=== PATIENT | male | born 1950 | race Two or more races ===

== ENCOUNTER 2024-12-28 06:59 | Inpatient (IN) | payer MEDICARE, MEDICAID, SELFPAY ==
[2024-12-28] VITALS (10 sets, daily range): BP systolic 115–162; BP diastolic 65–93; PULSE 74–97; RESP 16–18; TEMP 36.6–39.4; O2SAT 94–96; BMI 26.7; BMI 21.8
--- NOTE | 2024-12-28 | XR_ITS ---
MRI abdomen, without contrast. MRCP Date and time of exam: December 28, 2024, 1501 hours INDICATIONS: Elevated liver function tests today, gallstones, thickened gallbladder wall on CT abdomen study today Technique: Multiple axial and coronal images of the abdomen have been obtained with the Siemens 1.5T MRI scanner. Images obtained included T1 weighted transverse images, T2-weighted transverse images, T2-weighted transverse images fat-suppressed, T2 weighted haste fat suppressed transverse images, T1 weighted images, in and out of phase images, T2-weighted coronal images, breath hold, T2 weighted haze coronal images as well as T2 weighted coronal thick slab images, MRCP. Findings: No focal liver lesions Multiple gallstones Edema and inflammation around the gallbladder The common hepatic common bile ducts are not enlarged No pancreatic mass or peripancreatic edema Spleen is not enlarged Severe left renal cortical thinning with staghorn calculi Moderate right hydronephrosis, 20 mm calculus in the right renal pelvis Right perinephric stranding IMPRESSION: Acute calculus cholecystitis Negative for common hepatic or common bile duct stone
--- NOTE | 2024-12-28 07:17 | EDNOTE_ITS ---
ED Abdominal Pain RME/HPI General Chief Complaint: Abdominal Pain Stated complaint: ABD PAIN Time seen by provider: 12/28/24 07:09 Arrival date/time: 12/28/24 06:59 Source: patient Mode of arrival: EMS Limitations: no limitations RME / HPI RME / HPI narrative: Patient is a 74-year-old male resident of [facility] with onset of abdominal pain at this a.m. on the left side of his abdomen which lasted approximately 1 hour but then resolved. Patient patient does not have any abdominal pain at this time. No complaint of nausea, vomiting, constipation. MD complaint: abdominal pain Onset (ago): hour(s) Consistency: now resolved Severity: mild Quality: aching Radiation: LLQ Exacerbating factors: nothing Associated symptoms: denies other symptoms Related Data Home Medications ?Medication ?Instructions ?Recorded ?Confirmed acetaminophen 325 mg tablet 650 mg PO Q6H PRN Pain 09/24/22 (Tylenol) bisacodyl 10 mg rectal suppository 10 mg DC Q72H PRN C onstipation 03/31/20 09/24/22 (Dulcolax (bisacodyl)) magnesium hydroxide 400 mg/5 mL 30 ml PO Q48H PRN Cons tipation 03/31/20 09/24/22 oral suspension (Milk of Magnesia) sodium phosphates 19 gram-7 118 ml DC Q72H PRN Constip ation 03/31/20 09/24/22 gram/118 mL enema (Fleet Enema) Previous Rx's ?Medication ?Instructions ?Recorded levetiracetam 1,000 mg tablet 1,000 mg PO BID 90 days #180 tabs 09/24/22 (Keppra) Allergies Allergy/AdvReac Type Severity Reaction Status Date / Time No Known Allergies Allergy Verified 06/20/18 16:08 Review of Systems Review of Systems Systems Reviewed: All systems reviewed, normal except as documented Past Medical History Past Medical History NEUROLOGIC: Positive Neurological Disorders, Cerebrovascular Accident and Seizures CARDIAC: Negative Cardiac Disorders or Congestive Heart Failure RESPIRATORY: Negative Chronic Obstructive Pulmonary Disease (COPD) or Emphysema GASTROINTESTINAL: Negative Gastrointestinal Disorders GENITOURINARY: Negative Genitourinary Disorders or Renal Disease REPRODUCTIVE: Negative Breast Cancer MUSCULOSKELETAL: Negative Musculoskeletal Disorders ENDOCRINE: Negative Endocrine Disorders, Diabetes Mellitus Type 1 or Diabetes Mellitus Type 2 HEMATOLOGIC: Negative Blood Disorders OTHER HISTORY: Negative Autoimmune Disease, Anesthesia Reactions, Organ Transplant, MRSA, Clostridium Difficile or Breast Cancer Surgical History SURGICAL: Negative Cardiac Surgery, Endocrine Surgery, Thyroidectomy, Ear Surgery, Abdominal Surgery, Nephrectomy, Joint Replacement, Neurologic Surgery, Brain Shunt, Vasectomy or Organ Transplant Social History SMOKING STATUS: Never smoker SUBSTANCE USE: does not use ED Exam General Limitations: Present no limitations General appearance: Present alert and in no apparent distress Head Head exam: Present atraumatic Eye Eye exam: Present normal appearance, PERRL and EOMI ENT ENT exam: Present normal exam, normal oropharynx and mucous membranes moist Neck Neck exam: Present normal inspection, full ROM and trachea midline Chest Chest inspection: Present normal inspection and symmetric chest wall rise Respiratory Respiratory exam: Present normal lung sounds bilaterally Cardiovascular Cardiovascular exam: Present regular rate, normal rhythm and normal heart sounds Abdominal Exam Abdominal exam: Present tenderness (Mild RUQ TTP, firm on palpation, no massess) and normal bowel sounds; Absent distention, guarding, rebound or rigidity Extremities Exam Extremities exam: Present normal inspection and full ROM Back Exam Back exam: Present normal inspection and full ROM Neurological Exam Neurological exam: Present alert, oriented X3 and CN II-XII intact Psychiatric Psychiatric exam: Present normal affect and normal mood Skin Skin exam: Present warm, dry, intact and normal color Course Quality Measures none Orders Category Date Time Status COVID-19 Screening Questionnaire NOW Care 12/28/24 13:22 Active Systems Mechanic STAT Care 12/28/24 07:16 Active Continuous Pulse Oximetry STAT Care 12/28/24 07:16 Completed Decision to Admit X1 Care 12/28/24 13:21 Completed Insert IV STAT Care 12/28/24 07:16 Active MRI Screening NOW Care 12/28/24 14:09 Active NPO STAT Care 12/28/24 07:16 Active Consult to General Surgery Stat Cons 12/28/24 13:[address] abdomen pelvis wo con Stat Exams 12/28/24 07:16 Completed MR MRCP Stat Exams 12/28/24 Completed US gall bladder Stat Exams 12/28/24 10:02 Completed Amylase Stat Lab 12/28/24 07:58 Completed Blood Culture (Lab) Stat Lab 12/28/24 14:05 Received CBC Stat Lab 12/28/24 07:58 Completed Comprehensive Metabolic Panel Stat Lab 12/28/24 07:58 Completed Lactate (Lactic Acid) Stat Lab 12/28/24 13:53 Completed Prothrombin Time with INR Stat Lab 12/28/24 07:58 Completed Urinalysis Stat Lab 12/28/24 10:16 Completed Morphine* Inj Med 12/28/24 10:03 Discontinued 4 mg IVP X1 ONE Morphine* Inj Med 12/28/24 13:09 Discontinued 4 mg IVP X1 ONE Ondansetron Inj [Zofran Inj] Med 12/28/24 10:03 Discontinued 4 mg IVP X1 ONE Ondansetron Inj [Zofran Inj] Med 12/28/24 13:09 Discontinued 4 mg IVP X1 ONE Piper/Tazo 3.375 gm Premix [Zosyn] Med 12/28/24 13:23 Discontinued 3.375 gm in 50 ml IV X1 Sodium Chloride 0.9% 1000 ml [Ns] 1,000 ml Med 12/28/24 07:16 Discontinued IV 999 mls/hr Vital Signs Vital signs: Vital Signs Temperature 97.8 F 12/28/24 07:11 Pulse Rate 85 12/28/24 07:11 Respiratory Rate 18 12/28/24 07:11 Blood Pressure 162/93 H 12/28/24 07:11 Pulse Oximetry (%) 95 12/28/24 07:11 Oxygen Delivery Method Room Air 12/28/24 07:11 Pulse ox is 95% on room air which is adequate. Abdominal Pain MDM MDM Narrative MDM Narrative:: Talia Pastrana am scribing for and in the presence of Dr. Sanchez. Patient data External records reviewed:: [facility] [place] previous records (I reviewed admission from 09/23/2022 through 09/24/2022 ) and EMS form Clinical information provided by:: patient and EMS Social determinants that could affect healthcare access:: none Patient has the following chronic illnesses:: seizure and CVA in 2020 How is presenting disease/condition affected by chronic disease/condition?: exacerbated by Evaluation data The following diagnostics were reviewed and interpreted by me:: lab results and radiology exam(s) Lab and/or radiology exams considered but not ordered:: None Interpretation Summary: Ordering Physician: Vern Sanchez MD Date of Service: 12/28/24 Procedure(s): CT abdomen pelvis wo con Accession Number(s): [id number] cc: Vern Sanchez MD; Nico Dillon MD; Yosvany Kirk MD~ Examination: CT abdomen and pelvis without contrast. Coronal 3-D reconstructions. Sagittal 2-D reconstructions. Date and time of exam: December 28, 2024, 0729 hours INDICATIONS: Abdominal pain back pain beginning last night CTDI: vol (mGy): 6.04 DLP: (mGycm): 337 Technique: Axial images of the abdomen have been obtained, 3 mm slice thickness Intravenous contrast material has not been administered. Low dose protocols were performed. One or more of the following dose reduction techniques were used; automated exposure control, adjustment of the mA and/or KV according to patient size, use of iterative reconstruction technique. Findings: Large retrocardiac gastric hernia Liver is irregular in contour Distended gallbladder with gallstones Spleen is not enlarged. No pancreatic mass. Severe left renal cortical thinning, extensive left staghorn calculi 20 mm calculus in the right renal pelvis with moderate right hydronephrosis Aorta normal size Normal seminal vesicles Urinary bladder does not demonstrate calculi No pericecal inflammatory change Severe osteopenia IMPRESSION: Recommend hepatobiliary sonography to assess distended gallbladder with gallstones Severe left renal cortical thinning, extensive left staghorn calculi 20 mm calculus in the right renal pelvis with moderate right hydronephrosis Dictated By: Yosvany Kirk MD Signed By: <Electronically signed by Yosvany Kirk MD in OV> 12/28/24 0937 Ordering Physician: Vern Sanchez MD Date of Service: 12/28/24 Procedure(s): US gall bladder Accession Number(s): [id number] cc: Vern Sanchez MD; Nico Dillon MD; Yosvany Kirk MD~ Examination: Abdomen sonogram, Limited Date and time of exam: December 28, 2024, 1036 hours INDICATIONS: Elevated liver function tests on laboratory examination today Technique: Real-time short scale transabdominal sonographic images of the upper abdomen obtained. Findings: Gallstones, gallbladder wall abnormally thickened 0.5 cm Common bile duct 0.6 cm Pancreatic head 2.8 cm Liver 16.2 cm fatty infiltration irregular contour Normal hepatopedal portal venous flow Patent IVC Mild right hydronephrosis IMPRESSION: Cholelithiasis Abnormally thickened gallbladder wall Consider MRCP follow-up to confirm cholecystitis Dictated By: Yosvany Kirk MD Signed By: <Electronically signed by Yosvany Kirk MD in OV> 12/28/24 1135 Ordering Physician: Vern Sanchez MD Date of Service: 12/28/24 Procedure(s): MR MRCP Accession Number(s): [id number] cc: Vern Sanchez MD; Nico Dillon MD; Yosvany Kirk MD~ MRI abdomen, without contrast. MRCP Date and time of exam: December 28, 2024, 1501 hours INDICATIONS: Elevated liver function tests today, gallstones, thickened gallbladder wall on CT abdomen study today Technique: Multiple axial and coronal images of the abdomen have been obtained with the Siemens 1.5T MRI scanner. Images obtained included T1 weighted transverse images, T2-weighted transverse images, T2-weighted transverse images fat-suppressed, T2 weighted haste fat suppressed transverse images, T1 weighted images, in and out of phase images, T2-weighted coronal images, breath hold, T2 weighted haze coronal images as well as T2 weighted coronal thick slab images, MRCP. Findings: No focal liver lesions Multiple gallstones Edema and inflammation around the gallbladder The common hepatic common bile ducts are not enlarged No pancreatic mass or peripancreatic edema Spleen is not enlarged Severe left renal cortical thinning with staghorn calculi Moderate right hydronephrosis, 20 mm calculus in the right renal pelvis Right perinephric stranding IMPRESSION: Acute calculus cholecystitis Negative for common hepatic or common bile duct stone Dictated By: Yosvany Kirk MD Signed By: <Electronically signed by Yosvany Kirk MD in OV> 12/28/24 1532 Medications / Prescriptions Medications or Prescriptions considered but not ordered:: None Medication administrations:: Medication Administration History Acetaminophen (Acetaminophen 325 Mg Tablet) 650 mg PO Q6H PRN PRN Reason: PAIN OR FEVER > 100.4 Stop: 01/27/25 16:24 Hydrocodone Bitart/Acetaminophen (Hydrocodone/Apap 5/325 Tablet) 1 tab PO Q4HR PRN PRN Reason: PAIN SCALE 4-6 (Moderate Stop: 01/02/25 16:24 Heparin Sodium (Porcine) (Heparin Sod Inj 5000 Unit/Ml Vial) 5,000 unit SC Q8HR SANTOS Stop: 01/11/25 21:59 Lactated Ringer's (Lactated Ringers) 1,000 mls @ 75 mls/hr IV .[id number] SANTOS Stop: 01/27/25 16:59 Ciprofloxacin/Dextrose (Cipro Ivpb) 400 mg in 200 mls @ 200 mls/hr IV Q12HR SANTOS Stop: 01/04/25 16:55 Metronidazole (Flagyl 500 Mg Iv) 500 mg in 100 mls @ 200 mls/hr IV Q8HR SANTOS Stop: 01/04/25 16:55 Morphine Sulfate (Morphine Sulf Inj 4 Mg/Ml Vial) 1 mg IVP Q4HR PRN PRN Reason: PAIN SCALE 7-10 (Severe Stop: 01/02/25 16:24 Ondansetron HCl (Ondansetron Inj 2 Mg/Ml Inj 2 Ml) 4 mg IVP Q6H PRN; Protocol PRN Reason: NAUSEA OR VOMITING Stop: 01/27/25 16:24 Pantoprazole Sodium (Pantoprazole Inj 40 Mg Vial) 40 mg IVP QDAY SANTOS Stop: 01/28/25 08:59 Discontinued Medications Acetaminophen (Acetaminophen 325 Mg Tablet) 650 mg PO Q6H PRN PRN Reason: PAIN SCALE 1-3 (mild Stop: 01/27/25 16:24 Heparin Sodium (Porcine) (Heparin Sod Inj 5000 Unit/Ml Vial) 5,000 unit SC Q12HR SANTOS Stop: 01/11/25 16:29 Last Admin: 12/28/24 16:50 Dose: Not Given Documented By: BENNETT Non-Admin Reason: Patient Refused Sodium Chloride (Ns) 1,000 mls @ 999 mls/hr IV .Q1H1M ONE Stop: 12/28/24 08:16 Last Infusion: 12/28/24 08:56 Dose: Infused Documented By: Admin: 12/28/24 07:55 Dose: 999 mls/hr Documented By: BENNETT Piperacillin/Tazobactam/Dextrose (Zosyn) 3.375 gm in 50 mls @ 100 mls/hr IV X1 ONE; Protocol Stop: 12/28/24 13:52 Last Admin: 12/28/24 13:38 Dose: 100 mls/hr Documented By: BENNETT Morphine Sulfate (Morphine Sulf Inj 4 Mg/Ml Vial) 4 mg IVP X1 ONE Stop: 12/28/24 10:04 Last Admin: 12/28/24 10:14 Dose: 4 mg Documented By: AASHISH Morphine Sulfate (Morphine Sulf Inj 4 Mg/Ml Vial) 4 mg IVP X1 ONE Stop: 12/28/24 13:10 Last Admin: 12/28/24 13:32 Dose: 4 mg Documented By: BENNETT Morphine Sulfate (Morphine Sulf Inj 4 Mg/Ml Vial) 2 mg IVP Q4HR PRN PRN Reason: PAIN SCALE 7-10 (Severe Stop: 01/02/25 16:24 Ondansetron HCl (Ondansetron Inj 2 Mg/Ml Inj 2 Ml) 4 mg IVP X1 ONE; Protocol Stop: 12/28/24 10:04 Last Admin: 12/28/24 10:14 Dose: 4 mg Documented By: AASHISH Ondansetron HCl (Ondansetron Inj 2 Mg/Ml Inj 2 Ml) 4 mg IVP X1 ONE; Protocol Stop: 12/28/24 13:10 Last Admin: 12/28/24 13:31 Dose: 4 mg Documented By: BENNETT See above Consultations Consultation(s) initiated? (list below): Yes Consultation #1 (Physician, Specialty, Details): I spoke with surgeon Dr. Montenegro. Discussed patients PMHx, HPI, ED course, exam findings, labs, and radiology results. He agrees to consult and requests we admit to hospitalist team. Time: 13:15 Consultation #2 (Physician, Specialty, Details): I spoke with resident Dr. Lopez working with Dr. Palmer. Discussed patients PMHx, HPI, ED course, exam findings, labs, and radiology results. State they will consult with Dr. Montenegro and evaluate the patient prior to admission. Time: 13:25 Consultation #3 (Physician, Specialty, Details): 1330: Again, I spoke with surgeon Dr. Montenegro. 1405: Residents report they spoke with surgeon Dr. Montenegro who is requesting an MRCP prior to admission. 1610: Patient has been admitted by hospitalist team. Diagnosis Differential diagnosis abdominal pain: abdominal pain, calculus of kidney, constipation, diverticulitis and other (cholelithiasis, cholecystitis ) Most likely diagnosis given after review of the tests above:: Cholecystitis Cholelithiasis Elevated liver function test Hydronephrosis, right Left staghorn calculus Pyuria Admission Indicated Admission indicated?: indicated Admission Request Was there a request for admission?: Yes Admission Attestation Admission request attestation: Discussed case with [] from Hospitalist service regarding admission. Discussed patients ED course, exam findings, labs, and radiology results. The Hospitalist [agrees,declines] to accept the patient for admission. Disposition Plan Disposition Plan: Admit Discharge Plan Plan Patient Disposition: Admit Acute Care w/in Hospital Problem List Clinical Impression: Cholecystitis, Cholelithiasis, Elevated liver function tests, Hydronephrosis, right, Staghorn calculus, Pyuria
[2024-12-28] MEDS: SODIUM CHLORIDE 0.9% 1000 ML 1,000 ML 999 ML IV (07:55)
[2024-12-28 08:14] LABS: Basophils # (Auto) 0.0 Thou/mm3 (0.0-0.2); Basophils % (Auto) 0 % (0-2.5); Eosinophils # (Auto) 0.0 Thou/mm3 (0.0-0.5); Eosinophils % (Auto) 0 % (0-10); Hematocrit 52.1 % (41.0-53.0); Hemoglobin 17.4 g/dL (13.5-16.0); Immature Granulocytes Auto 0.02 Thou/mm3 (0.00-0.00); Lymphocytes # (Auto) 1.2 Thou/mm3 (1.0-4.8); Lymphocytes % (Auto) 13 % (10-50); Mean Corpuscular HGB Conc 33.4 g/dl (31.0-37.0); Mean Corpuscular Hemoglobin 30.4 pg (25.0-35.0); Mean Corpuscular Volume 91 fL (80-100); Monocytes # (Auto) 0.5 Thou/mm3 (0.0-0.8); Monocytes % (Auto) 6 % (0-12); Neutrophils # (Auto) 7.8 Thou/mm3 (1.8-7.7); Neutrophils % (Auto) 81 % (37-80); Nucleated Red Blood Cell # 0.00 Thou/mm3 (0.00-0.00); Nucleated Red Blood Cell % 0 /100 WBC (0); Platelet Count 147 Thou/mm3 (140-440); RDW Standard Deviation 44.5 fL (35.1-43.9); Red Blood Count 5.72 Miln/mm3 (4.50-5.90); White Blood Count 9.6 Thou/mm3 (3.8-10.6)
[2024-12-28 08:27] LABS: Alanine Aminotransferase 336 U/L (10-49); Albumin, Serum 4.5 gm/dL (3.4-4.8); Albumin/Globulin Ratio 1.4 (1.2-2.2); Alkaline Phosphatase 270 U/L (46-116); Amylase 112 U/L (30-118); Anion Gap 12 (7-16); Aspartate Amino Transferase 482 U/L (0-34); BUN/Creatinine Ratio 13 Ratio (12-20); Bilirubin,Total 1.7 mg/dL (0.3-1.2); Blood Urea Nitrogen 13 mg/dL (9-23); Calcium 9.3 mg/dL (8.3-10.6); Calcium (Corrected) 9.3 mg/dL (8.5-10.1); Carbon Dioxide 21.0 mMol/L (20.0-31.0); Chloride 109 mMol/L (98-107); Creatinine (Component) 1.0 mg/dL (0.6-1.3); Estimated Creatinine Clearance 55.9 mL/min (>60); Globulin 3.2 gm/dL (2.3-3.5); Glucose 140 mg/dL (74-106); Osmolality,Calculated 285 (275-295); Potassium 4.1 mMol/L (3.4-5.1); Sodium 142 mMol/L (136-145); Total Protein 7.7 gm/dL (5.7-8.2); eGFR > 60 See Note
[2024-12-28 09:20] LABS: INR 1.1 (0.9-1.3); Prothrombin Time 11.5 Seconds (9.0-12.2)
--- NOTE | 2024-12-28 10:02 | XR_ITS ---
Examination: Abdomen sonogram, Limited Date and time of exam: December 28, 2024, 1036 hours INDICATIONS: Elevated liver function tests on laboratory examination today Technique: Real-time short scale transabdominal sonographic images of the upper abdomen obtained. Findings: Gallstones, gallbladder wall abnormally thickened 0.5 cm Common bile duct 0.6 cm Pancreatic head 2.8 cm Liver 16.2 cm fatty infiltration irregular contour Normal hepatopedal portal venous flow Patent IVC Mild right hydronephrosis IMPRESSION: Cholelithiasis Abnormally thickened gallbladder wall Consider MRCP follow-up to confirm cholecystitis
[2024-12-28] MEDS: ONDANSETRON INJ 2 MG/ML INJ 2 ML 4 MG IVP ×2 (10:14→13:31)
[2024-12-28] MEDS: MORPHINE SULF INJ 4 MG/ML VIAL IVP ×2 (10:14→13:32)
[2024-12-28 10:38] LABS: Collection Type, Urine Clean Catch
[2024-12-28 11:02] LABS: Bacteria,Urine Rare; Bilirubin,Urine Negative (Negative); Blood,Urine 2+ (Negative); Clarity,Urine Turbid (Clear/Hazy); Color,Urine Yellow (Lt Yel-Yel); Glucose, Urine Negative (Negative); Ketones,Urine Negative (Negative); Leukocyte Esterase,Urine Positive (Negative); Nitrite,Urine Negative (Negative); PH,Urine 6.5 (5.0-7.0); Protein,Urine 1+ (Neg - Trace); RBC,Urine 199 /hpf (0-3); Specific Gravity,Urine 1.021 (1.001-1.035); Squamous Epithelial Cell,Urine 1 /hpf (0-5); Urobilinogen,Urine 4.0 mg/dL (0.0-1.0); WBC,Urine 132 /hpf (0-5)
[2024-12-28] MEDS: PIPER/TAZO 3.375 GM PREMIX 3.375 GM/50 ML BAG IV (13:38)
[2024-12-28 14:02] LABS: Lactate (Lactic Acid) 2.0 mMol/L (0.4-2.0)
--- NOTE | 2024-12-28 14:44 | PC.SS ---
[employer] (JOEY) Dagmar, along with KRISTAN Jaffe, reviewed the chart following a consult for an initial assessment. Patient was BIBA from [facility] with an onset of abdominal pain. Per MD, the patient is not alert and oriented at this time. JOEY called the patient's emergency contacts on the Facesheet; however, the numbers were disconnected, and JOEY called [facility]. Kenya from [facility] provided an updated phone number for the patient's son, Vega Robbins, . JOEY had admitting update the phone number on the Facesheet. JOEY spoke to Vega, who reports the patient is a long-term resident at [facility] and confirmed that after medical clearance patient is to return to the facility. JOEY confirms with [place] that the patient is a long-term resident and ok to return. Per Vega, the patient's baseline is independent with no DME and alert and oriented. Patient's PCP is MD Dillon. Surrogate medical decision maker: Vega Robbins, Discharge plan: Back to [facility]
--- NOTE | 2024-12-28 15:54 | ESHP_ITS ---
<Statement entered by Ted Lopez MD - 12/29/24 01:35> Chase Robbins is a 74-year-old male with a past medical history of CVA in 2019 and seizure disorder who presents from SNF for acute onset abdominal pain and admitted for management of acute calculous cholecystitis. Afebrile and other vital signs stable. CBC without leukocytosis. CHEM panel significant for elevated LFTs and T. bili. Initial imaging showed cholelithiasis but given elevated LFTs and T. bili, MRCP requested that showed acute calculous cholecystitis. Started on ciprofloxacin and Flagyl, restarted home Keppra, and general surgery consulted. Patient will be n.p.o. in anticipation for cholecystectomy. ----- Note reviewed and agree with care plan as documented. Please refer to the note below for further details. Plan discussed with attending physician Dr. Spencer Lopez MD PGY-2 Internal Medicine Documentation for date of: 12/28/24 HPI History of Present Illness History of present illness: HPI: Past 74-year-old male with medical history of CVA in 2019, seizure disorder, came to the ED on 12/28 complaining of left-sided abdominal pain earlier in the morning which lasted approximately 1 hour before it receded. Patient has had right upper quadrant abdominal pain on and off for the past 2 weeks. Pain was described as stabbing worse with movement. Patient had vomited once in the morning. Eating more than a small portion would exacerbate the abdominal pain. Patient has been taking pain meds with no avail. In the ED, patient denied presence of abdominal pain, nausea, vomiting, or history of constipation. ED Course: At arrival, VSS BP 162/93, HR 85, RR 18, T97.8, O2 95% on RA. Labs showed WBC 9.6, Hgb 17.4, glucose 140, T. bili 1.7, LFTs elevated AST 482, ALT 336, ALP 270. Patient was given a 1 L bolus of NS, morphine IVP 4 mg x 2 for pain, Zofran IVP 4 mg x 2 and Zosyn 3.375 g x1. Meds: See Medication List. Allergy: None PMHx: See HPI above. PSHx: None Fam Hx: Non-contributory Soc Hx: Denies smoking or using tobacco products. Denies drinking alcohol. Denies using marijuana, or illicit drugs. Exam Vital Signs Temp Pulse Resp BP Pulse Ox O2 Del Method 98.8 F 96 18 126/65 95 Room Air 12/28/24 14:51 12/28/24 14:51 12/28/24 14:51 12/28/24 14:51 12/28/24 14:51 12/28/24 14:51 Narrative Exam General: Alert and oriented x3, No apparent distress. Skin: Intact, Warm, no rashes. HEENT: Normocephalic, Atraumatic. Normal neck range of motion, Supple. Trachea midline. Respiratory: Lungs are clear to auscultation, Breath sounds are equal bilaterally with equal chest expansion. Cardiovascular: RRR, normal S1, S2, No murmurs. Distal pulses 2+ Abdomen: Abdomen firm, rigid, non-distended, without erythema, or lesions. Diminished bowel sounds x4. Percussion tympanic. TTP RUQ, No organomagely. No guarding or rebound present. Musculoskeletal/Extremities: No erythema, swelling, tenderness of any joints. No edema of BLE. DP pulses +2/3 b/l. Full active ROM of all four extremities. Neurologic: NEURO: Oriented x3, cranial nerves II to XII grossly intact. Muscle strength 5/5 on UE and LE b/l, Moves extremities x4. Sensation intact to gross touch along C6-T1 and L2-S1 dermatomes. No focal neurologic deficits noted Psych: Thoughts linear and responses appropriate. Results: Labs 12/29/24 04:50 12/29/24 04:50 Labs: Short CBC 12/28/24 Range/Units 07:58 WBC 9.6 (3.8-10.6) Thou/mm3 Hgb 17.4 H (13.5-16.0) g/dL Hct 52.1 (41.0-53.0) % Plt Count 147 (140-440) Thou/mm3 BMP 12/28/24 07:58 Sodium 142 Potassium 4.1 Chloride 109 H Carbon Dioxide 21.0 BUN 13 Creatinine 1.0 Glucose 140 H Calcium 9.3 Liver Function 12/28/24 Range/Units 07:58 Total Bilirubin 1.7 H (0.3-1.2) mg/dL AST 482 H (0-34) U/L ALT 336 H (10-49) U/L Alkaline Phosphatase 270 H (46-116) U/L Albumin 4.5 (3.4-4.8) gm/dL Urine 12/28/24 Range/Units 10:16 Urine Color Yellow (Lt Yel-Yel) Urine Clarity Turbid A (Clear/Hazy) Urine pH 6.5 (5.0-7.0) Ur Specific [place] 1.021 (1.001-1.035) Urine Protein 1+ A (Neg - Trace) Urine Glucose (UA) Negative (Negative) Quality Measures Quality Measures none Advance care planning discussed with:: patient Medications Home Medications and Allergies Home Medications ?Medication ?Instructions ?Recorded ?Confirmed ?Type acetaminophen 325 mg tablet 650 mg PO Q6H PRN Pain 12/28/24 History (Tylenol) bisacodyl 10 mg rectal suppository 10 mg [place] Q72H PRN C onstipation 03/31/20 12/28/24 History (Dulcolax (bisacodyl)) magnesium hydroxide 400 mg/5 mL 30 ml PO Q48H PRN Cons tipation 03/31/20 12/28/24 History oral suspension (Milk of Magnesia) sodium phosphates 19 gram-7 118 ml [place] Q72H PRN Constip ation 03/31/20 12/28/24 History gram/118 mL enema (Fleet Enema) brimonidine 0.1 % eye drops 1 drp ophthalmic (eye) TID 12/28/24 12/28/24 History cenobamate 200 mg tablet (Xcopri) 200 mg PO QDAY 12/2812/28/24 History latanoprost 0.005 % eye drops 1 drp ophthalmic (eye) Q PM 12/28/24 12/28/24 History (Xalatan) mirtazapine 15 mg tablet 15 mg PO HS 12/28/24 5 History timolol maleate 0.5 % once daily 1 drp ophthalmic (eye ) QDAY 12/28/24 12/28/24 History eye drops zonisamide 100 mg capsule 600 mg PO QDAY 12/28/2412/17 History Allergies Allergy/AdvReac Type Severity Reaction Status Date / Time No Known Allergies Allergy Verified 06/20/18 16:08 Visit Medications Discontinued Medications Sodium Chloride (Ns) 1,000 mls @ 999 mls/hr IV .Q1H1M ONE Stop: 12/28/24 08:16 Last Infusion: 12/28/24 08:56 Dose: Infused Piperacillin/Tazobactam/Dextrose (Zosyn) 3.375 gm in 50 mls @ 100 mls/hr IV X1 ONE; Protocol Stop: 12/28/24 13:52 Last Admin: 12/28/24 13:38 Dose: 100 mls/hr Morphine Sulfate (Morphine Sulf Inj 4 Mg/Ml Vial) 4 mg IVP X1 ONE Stop: 12/28/24 10:04 Last Admin: 12/28/24 10:14 Dose: 4 mg Morphine Sulfate (Morphine Sulf Inj 4 Mg/Ml Vial) 4 mg IVP X1 ONE Stop: 12/28/24 13:10 Last Admin: 12/28/24 13:32 Dose: 4 mg Ondansetron HCl (Ondansetron Inj 2 Mg/Ml Inj 2 Ml) 4 mg IVP X1 ONE; Protocol Stop: 12/28/24 10:04 Last Admin: 12/28/24 10:14 Dose: 4 mg Ondansetron HCl (Ondansetron Inj 2 Mg/Ml Inj 2 Ml) 4 mg IVP X1 ONE; Protocol Stop: 12/28/24 13:10 Last Admin: 12/28/24 13:31 Dose: 4 mg Assessment & Plan Plan Past 74-year-old male with medical history of CVA in 2019, seizure disorder, came to the ED on 12/28 complaining of left-sided abdominal pain earlier in the morning which lasted approximately 1 hour before it receded. He was admitted for inpatient management of acute cholecystitis confirmed by imaging. #Acute calculous cholecystitis CTAP: Liver is irregular in contour, distended gallbladder with gallstones. Severe left renal cortical thinning, extensive left staghorn calculi. 20 mm calculus in the right renal pelvis with moderate right hydronephrosis US GB: Cholelithiasis, thickened gallbladder wall MRCP: Acute calculous cholecystitis, negative for common hepatic or common bile duct stone. Plan: -Ciprofloxacin IV 100 mg every 12 hours + Flagyl IV 500 mg every 8 hours -Surgery consulted, appreciate recs -N.p.o. meds allowed -Daily CBC, CMP, Mg, phos -Multimodal pain management with Tylenol, [place] 5-325, and morphine 1mg Q4h #History of seizure disorder -Will resume home Keppra 1500 mg twice daily Health Maintenance: Disposition: Med Surg, pending evaluation for elective cholecystectomy Diet: N.p.o. PPx DVT: Heparin 5000 units SC every 12 hours -paused in anticipation of surgery Code Status: Full This case was discussed with my attending physician, Dr. Palmer, and senior resident, Dr Jessica Gutierrez. Minoo Bower DO PGY I Attending Provider Attestation/Addendum I, Ami Palmer DO, attest that I was physically present for the zarate portions of the service and evaluated the patient with the resident and I reviewed and discussed the case with the resident and agree with the resident's findings and plans of care as documented above Patient is a 74-year-old male with past medical history of epilepsy who was brought in from the alf facility due to acute onset of abdominal pain that began this morning. Patient states that the pain has been intermittent and sharp radiating from his epigastric region and to his back in a belt-like manner. Patient reports having on and off pain worse with food. Patient has been eating less due to this intermittent pain for the past 2 weeks. He denies any active fevers or chills. He also denies any chest pain or shortness of breath. Upon evaluation in the ED, patient was noted to have low blood pressure 160/93, heart rate 85, respiratory rate 18 and temperature 97.8. Patient is afebrile. White blood cells are 9.6 and his labs are significant for elevated LFTs with a T. bili of 1.7, AST 482, ALT 336 and ALP of 270. CT abdomen pelvis was done showing severe left renal cortical thinning and extensive left staghorn calculus. The 20 mm calculus in the right renal pelvis with moderate right hydronephrosis was also noted. Patient denies any dysuria otherwise. A gallbladder ultrasound was also done showing cholelithiasis, abnormally thickened gallbladder wall. Due to elevated LFTs, MRCP was done and shows acute calculous cholecystitis, but negative for any, hepatic or CBD stone. Patient does have a positive Cintron sign and is quite tender on light palpation. Surgery was consulted from ED. Recommends admission and plans for cholecystectomy in AM. Will keep patient NPO. Will give IV fluids and IV antibiotics for acute cholecystitis. Due to significant hydronephrosis and 2 cm stone noted on CT, case was discussed with urology and suspect that the stone has been a chronic issue and is not concerning as stone is in the right renal pelvis. Hydronephrosis is likely secondary to chronic obstruction from that 2 cm stone. Will see patient on Tuesday otherwise. UA appears to have rare bacteria, pyuria and some RBCs, which has been seen in previous UAs. Will follow-up with urine culture nevertheless. Will admit patient [place] [facility] [place] workup medical management of acute cholecystitis. Will keep patient n.p.o. with IV fluid hydration and IV antibiotics at this time. Will follow-up with surgery recommendations.
[2024-12-28] MEDS: CIPROFLOXACIN/D5w 400 MG IVPB 400 MG/200 ML BAG 200 MG IV (17:24)
[2024-12-28] MEDS: RINGERS LACTATED 1000 ML 1,000 ML 75 ML IV (17:24)
[2024-12-28] MEDS: metroNIDAZOLE/NS 500 MG IVPB 500 MG/100 ML BAG 200 MG IV ×2 (17:25→21:20)
--- NOTE | 2024-12-28 18:49 | PD.SURCONS ---
HPI Consult details Consult date: 12/28/24 Reason for consultation narrative: Patient was seen in consultation because of cholecystitis due to cholelithiasis History of present illness: History of present illness revealed that the patient has had abdominal pain for a couple of days associated with nausea and vomiting. He is a poor historian and has been living in a fdc for the past month following a weakness over the lower extremities for which he was placed there. He also had a history of CVA and seizure disorders in the past. And he has been taking Keppra for his seizures patient has a history of staghorn calculus and urinary tract infection he was sent from the fdc today because he was vomiting and workup revealed gallstones and staghorn calculus of the left kidney and hydronephrosis of the right kidney Past Medical History Past Medical History NEUROLOGIC: Positive Neurological Disorders, Cerebrovascular Accident and Seizures CARDIAC: Negative Cardiac Disorders or Congestive Heart Failure RESPIRATORY: Negative Respiratory Disorders, Chronic Obstructive Pulmonary Disease (COPD) or Emphysema GASTROINTESTINAL: Negative Gastrointestinal Disorders GENITOURINARY: Negative Genitourinary Disorders or Renal Disease REPRODUCTIVE: Negative Breast Cancer MUSCULOSKELETAL: Negative Musculoskeletal Disorders ENDOCRINE: Negative Endocrine Disorders, Diabetes Mellitus Type 1 or Diabetes Mellitus Type 2 HEMATOLOGIC: Negative Blood Disorders OTHER HISTORY: Negative Autoimmune Disease, Anesthesia Reactions, Organ Transplant, MRSA, Clostridium Difficile or Breast Cancer Surgical History SURGICAL: Negative Cardiac Surgery, Endocrine Surgery, Thyroidectomy, Ear Surgery, Abdominal Surgery, Nephrectomy, Joint Replacement, Neurologic Surgery, Brain Shunt, Vasectomy or Organ Transplant Social History SMOKING STATUS: Never smoker SUBSTANCE USE: does not use Meds Home Medications and Allergies Home Medications ?Medication ?Instructions ?Recorded ?Confirmed ?Type acetaminophen 325 mg tablet 650 mg PO Q6H PRN Pain 03/31/20 09/24/22 History (Tylenol) bisacodyl 10 mg rectal suppository 10 mg [place] Q72H PRN Constipation 03/31/20 09/24/22 History (Dulcolax (bisacodyl)) magnesium hydroxide 400 mg/5 mL 30 ml PO Q48H PRN Constipation 03/31/20 09/24/22 History oral suspension (Milk of Magnesia) sodium phosphates 19 gram-7 118 ml [place] Q72H PRN Constipation 03/31/20 09/24/22 History gram/118 mL enema (Fleet Enema) Allergies Allergy/AdvReac Type Severity Reaction Status Date / Time No Known Allergies Allergy Verified 06/20/18 16:08 Exam Vital Signs Temp Pulse Resp BP Pulse Ox O2 Del Method 98.9 F 83 18 129/76 95 Room Air 12/28/24 18:07 12/28/24 18:07 12/28/24 18:07 12/28/24 18:07 12/28/24 18:07 12/28/24 18:07 Narrative Exam Physical examination revealed a thin built male who only speaks Korean. He is 5 feet 4 inches tall weighing 155 pounds Constitutional Constitutional: moderate distress Routine Abdominal Exam Comments: Abdomen showed tenderness over the right upper quadrant. Patient has an umbilical hernia Routine Rectal Exam Comments: Deferred Routine Exam Comments: Patient has a kidney infection Routine Extremities Exam Comments: Lower extremities revealed considerable amount of weakness and inability of the patient to walk. He is using walker to ambulate Routine Neurological Exam Comments: Difficult to evaluate other than the seizures Results Results: Laboratory Laboratory Narrative: Laboratory results are within normal limits. But his liver enzymes are very elevated including the bilirubin obviously due to passage of a stone in the common bile duct Results: Imaging Imaging narrative: Ultrasound showed cholelithiasis and the CT scan showed acute cholecystitis. MRCP was performed to rule out common bile duct stone which revealed none. But he was found to have acute cholecystitis on MRCP Assessment & Plan Additional Assessment Additional comments: Impression: Cholelithiasis with acute cholecystitis Possible common bile duct stone, passed Seizure disorder Staghorn calculus of the kidney associated with urinary tract infection Status post CVA Status post weakness in the lower extremities And umbilical hernia, asymptomatic Plan Plan: Patient will require laparoscopic cholecystectomy. Even though patient has a urinary tract infection on the urinalysis as well as mild hydronephrosis his problem seems to be gallbladder rather than calculus. Patient may require urology evaluation later on after the surgery. The procedure was explained to him using supervisor blueprinting and photocopy and he is agreeable.
[2024-12-28] MEDS: HEPARIN SOD INJ 5000 UNIT/ML VIAL SC (21:21)
[2024-12-28] MEDS: ACETAMINOPHEN 325 MG TABLET 650 MG PO (23:45)
[2024-12-29] VITALS: BP 107/55; PULSE 90; RESP 18; TEMP 39.4; O2SAT 95
[2024-12-29 00:45] VITALS: TEMP 37.6
[2024-12-29 04:00] VITALS: BP 106/65; PULSE 101; RESP 20; TEMP 36.9; O2SAT 94
[2024-12-29] MEDS: metroNIDAZOLE/NS 500 MG IVPB 500 MG/100 ML BAG 200 MG IV (05:09)
[2024-12-29 05:40] LABS: Basophils # (Auto) 0.0 Thou/mm3 (0.0-0.2); Basophils % (Auto) 0 % (0-2.5); Eosinophils # (Auto) 0.0 Thou/mm3 (0.0-0.5); Eosinophils % (Auto) 0 % (0-10); Hematocrit 46.5 % (41.0-53.0); Hemoglobin 15.6 g/dL (13.5-16.0); Immature Granulocytes Auto 0.08 Thou/mm3 (0.00-0.00); Lymphocytes # (Auto) 1.4 Thou/mm3 (1.0-4.8); Lymphocytes % (Auto) 9 % (10-50); Mean Corpuscular HGB Conc 33.5 g/dl (31.0-37.0); Mean Corpuscular Hemoglobin 30.1 pg (25.0-35.0); Mean Corpuscular Volume 90 fL (80-100); Monocytes # (Auto) 0.9 Thou/mm3 (0.0-0.8); Monocytes % (Auto) 6 % (0-12); Neutrophils # (Auto) 13.5 Thou/mm3 (1.8-7.7); Neutrophils % (Auto) 85 % (37-80); Nucleated Red Blood Cell # 0.00 Thou/mm3 (0.00-0.00); Nucleated Red Blood Cell % 0 /100 WBC (0); Platelet Count 151 Thou/mm3 (140-440); RDW Standard Deviation 44.4 fL (35.1-43.9); Red Blood Count 5.19 Miln/mm3 (4.50-5.90); White Blood Count 15.9 Thou/mm3 (3.8-10.6)
[2024-12-29 05:58] LABS: INR 1.4 (0.9-1.3); Partial Thromboplastin Time 31.0 Seconds (22.0-36.0); Prothrombin Time 14.6 Seconds (9.0-12.2)
[2024-12-29 06:33] LABS: Alanine Aminotransferase 397 U/L (10-49); Albumin, Serum 3.5 gm/dL (3.4-4.8); Albumin/Globulin Ratio 1.3 (1.2-2.2); Alkaline Phosphatase 208 U/L (46-116); Anion Gap 13 (7-16); Aspartate Amino Transferase 252 U/L (0-34); BUN/Creatinine Ratio 13 Ratio (12-20); Bilirubin,Direct 3.7 mg/dL (0.0-0.3); Bilirubin,Total 5.3 mg/dL (0.3-1.2); Blood Urea Nitrogen 14 mg/dL (9-23); Calcium 8.3 mg/dL (8.3-10.6); Calcium (Corrected) 8.7 mg/dL (8.5-10.1); Carbon Dioxide 19.1 mMol/L (20.0-31.0); Cardiac Risk Estimate 3.2 RATIO (4.0-6.7); Chloride 111 mMol/L (98-107); Cholesterol 168 mg/dL (132-200); Creatinine (Component) 1.1 mg/dL (0.6-1.3); Estimated Creatinine Clearance 52.7 mL/min (>60); Globulin 2.6 gm/dL (2.3-3.5); Glucose 116 mg/dL (74-106); HDL Cholesterol 52 mg/dL (40-60); LDL Cholesterol,Calculated 108 mg/dL (0-130); Magnesium 1.4 mg/dL (1.6-2.6); Osmolality,Calculated 286 (275-295); Phosphorous 2.4 mg/dL (2.4-5.1); Potassium 3.5 mMol/L (3.4-5.1); Sodium 143 mMol/L (136-145); Total Protein 6.1 gm/dL (5.7-8.2); Triglycerides 40 mg/dL (30-150); eGFR > 60 See Note
[2024-12-29 08:00] VITALS: BP 104/64; PULSE 78; RESP 17; TEMP 36.7; O2SAT 92
[2024-12-29] MEDS: levETIRAcetam INJ 100 MG/ML VIAL 5ML 1500 MG IVP (08:45)
[2024-12-29] MEDS: POTASSIUM CHL 10 mEq IVPB 10 MEQ/100 ML BAG 100 MEQ IV ×3 (09:33→12:40)
[2024-12-29] MEDS: PIPER/TAZO 3.375 GM PREMIX 3.375 GM/50 ML BAG IV (09:34)
[2024-12-29] MEDS: Magnesium Sulfate 4 GM Ivpb 4 GM/50 ML BAG IV (09:34)
[2024-12-29] MEDS: RINGERS LACTATED 1000 ML 1,000 ML 75 ML IV (09:39)
--- NOTE | 2024-12-29 09:49 | PD.SURPROG ---
Documentation for date of: 12/29/24 Subjective Subjective Brief History: History of present illness revealed that the patient has had abdominal pain for a couple of days associated with nausea and vomiting. He is a poor historian and has been living in a half-way for the past month following a weakness over the lower extremities for which he was placed there. He also had a history of CVA and seizure disorders in the past. And he has been taking Keppra for his seizures patient has a history of staghorn calculus and urinary tract infection he was sent from the half-way today because he was vomiting and workup revealed gallstones and staghorn calculus of the left kidney and hydronephrosis of the right kidney Narrative: The patient was seen for a follow-up today. There is no significant change in his general condition. He does not have any pain other than some discomfort over the entire upper portion of the abdomen radiating to both sides. Cintron sign is negative Exam Vital Signs Temp Pulse Resp BP Pulse Ox O2 Del Method 98.1 F 78 17 104/64 92 L Room Air 12/29/24 08:00 12/29/24 08:00 12/29/24 08:00 12/29/24 08:00 12/29/24 08:00 12/29/24 04:00 Vital signs are stable now but he had a temperature spike of 103 degrees last night. Routine Abdominal Exam Comments: Abdominal examination is unchanged from yesterday Results Results: Laboratory Laboratory Narrative: Laboratory results show increasing leukocytosis and bilirubin going up to 5.3. Transaminases levels are coming down Assessment & Plan Assessment Additional comments: ImPression: I am not sure patient's problem is only acute cholecystitis. He may require cholecystectomy but we need to clear the possibility of a common bile duct stone before proceeding with surgery. He may require ERCP despite negative MRCP. I therefore suggest we transfer the patient services available. Cholecystitis alone cannot cause hyperbilirubinemia. I would wait for the bilirubin level to come down before proceeding with cholecystectomy. Meanwhile we need urology evaluation to find out about the contribution of hydronephrosis and urinary tract infection to this clinical picture. Plan Plan: I would like to hold off cholecystectomy at this time and wait for further evaluation. Thank you very much
--- NOTE | 2024-12-29 10:10 | PC.CM ---
Addendum entered by Jorge Garcia RN 12/29/24 15:25: 1520- Received call from Amanuel at [facility], patient has a room available, Room 2226 bed 3, phone number for report is [phone]. Information provided to ALFREDO Weber and she will update bedside RN. Addendum entered by Jorge Garcia RN 12/29/24 10:58: 1035-Received call from [facility] Transfer RN Amanuel, requesting current VS, provided to him. He informed me that his GI team has accepted to consult on the patient at this time, he is waiting to hear back form the hospitalist team if they are able to accept patient, awaiting update from him at this time. Original Note: 0945-Received call from Dr. Barry requesting to initiate a transfer for HLOC, patient needs GI services for ERCP. Transfer packet started and imaging disc created. Clinical packet sent to [facility], [facility], and [facility]. At this time [facility] TC ISABELL Mendes has informed us they do not have the service available and have declined transfer. Awaiting responses from [facility] and [facility] at this time.
--- NOTE | 2024-12-29 11:32 | ESDS_ITS ---
<Statement entered by Ami Palmer DO - 12/29/24 17:32> I, Ami Palmer DO, attest that I was physically present for the zarate portions of the service and evaluated the patient with the resident and I reviewed and discussed the case with the resident and agree with the resident's findings and plans of care as documented above <Statement entered by Titi Barry MD - 12/29/24 13:52> Patient was examined with the team including attending physician. Note reviewed, I agree with the discharge plan as documented. - Titi Barry MD PGY 3 Disclaimer: The document may contain phonetic/typographic errors due to voice recognition software. Planned Discharge Date 12/29/24 DS: Providers Provider Date of admission: 12/28/24 16:20 Primary care physician: Nico Dillon MD Admitting Provider: Ami Palmer DO Attending Provider on Admission: Ami Palmer DO Consults: 12/28/24 13:21 Consult to General Surgery Stat Comment: Consulting Provider: Clayton Leblanc 12/29/24 08:19 Consult to Urology Routine Comment: Please see instructions section Consulting Provider: Cyrus Dunn Instructions: consulting for Severe left renal cortical thinning, extensive left staghorn calculi. 20 mm calculus in the right renal pelvis with moderate right hydronephrosis 12/29/24 09:45 Referral - Slip Cover Maker Stat Service Needed for Transfer: Gastroenterology Addl Comments:: ERCP needed urgently - acute cholangitis Attending Provider on DC: Minoo Bower DO Discharging Provider: Minoo Bower DO DS: Diagnosis Problem List Completed Was Problem List Reviewed/Reconciled?: Yes Hospital Course Hospital Course Hospital course: 74-year-old male with medical history of seizure disorder who came to the ED on 12/28/2024 complaining of intermittent abdominal pain beginning 2 weeks ago and worsening in severity. Pain was described as stabbing and rated 6-7/10, worse with movement. CTAP showed distended gallbladder with gallstones confirmed with ultrasound of the gallbladder. MRCP showed acute calculous cholecystitis, but was negative for common hepatic or common bile duct stones. antibiotics started with ciprofloxacin and metronidazole. Patient was placed n.p.o. in anticipation of surgery, however overnight he developed fever of 103 F and T. bili elevated to 5.3, direct bilirubin 3.7. LFTs elevated with AST 252, ALT 397, ALP 208. Patient was at baseline mentation and blood pressure stable. WBC elevated 15.9 from 9.6 the day before. Although MRCP was negative for CBD stone, the possibility of an impacted stone could not be ruled out completely. Choice of antibiotics were switched to Zosyn and patient was recommended to complete a ERCP by by the surgical team as cholecystectomy would pose risk for worsening clinical condition, with elevated LFT's, T bili, and WBC count. Patient was accepted at [facility] in [place] to be transferred for emergent ERCP. GI specialist consulted who agreed to performing the procedure. The Hospitalist admitted the patient as a bed was available in the hospital. Imaging: CTAP: Liver is irregular in contour, distended gallbladder with gallstones. Severe left renal cortical thinning, extensive left staghorn calculi. 20 mm calculus in the right renal pelvis with moderate right hydronephrosis US GB: Cholelithiasis, thickened gallbladder wall MRCP: Acute calculous cholecystitis, negative for common hepatic or common bile duct stone. Admission diagnoses: #Acute calculous cholecystitis #History of seizure disorder Discharge instructions as per accepting facility This case was discussed with my attending physician, Dr. Palmer, and senior resident, Dr Barry. Minoo Bower, DO PGY I Status at Discharge Cognitive/behavioral status at discharge: stable Time Spent with Patient Time attestation: Total time spent providing and/or coordinating discharge services: More than 50% of patient's hospital stay Time spent: Greater than 30 minutes Exam Vital Signs Temp Pulse Resp BP Pulse Ox O2 Del Method 98.1 F 78 17 104/64 92 L Room Air 12/29/24 08:00 12/29/24 08:00 12/29/24 08:00 12/29/24 08:00 12/29/24 08:00 12/29/24 04:00 Narrative Exam General: Alert and oriented x3, No apparent distress. Skin: Intact, Warm, no rashes. HEENT: Normocephalic, Atraumatic. Normal neck range of motion, Supple. Trachea midline. Respiratory: Lungs are clear to auscultation, Breath sounds are equal bilaterally with equal chest expansion. Cardiovascular: RRR, normal S1, S2, No murmurs. Distal pulses 2+ Abdomen: Abdomen firm, especially in RUQ, non-distended, without erythema, or lesions. Diminished bowel sounds x4. Percussion tympanic. TTP RUQ, No organomagely. No guarding or rebound present. Musculoskeletal/Extremities: No erythema, swelling, tenderness of any joints. No edema of BLE. DP pulses +2/3 b/l. Full active ROM of all four extremities. Neurologic: NEURO: Oriented x3, cranial nerves II to XII grossly intact. Muscle strength 5/5 on UE and LE b/l, Moves extremities x4. Sensation intact to gross touch along C6-T1 and L2-S1 dermatomes. No focal neurologic deficits noted Psych: Thoughts linear and responses appropriate. Discharge Plan Plan Care Plan Goals: Discharge instructions as per accepting facility Prescriptions/Referrals Prescriptions/Med Rec: No Action acetaminophen [Tylenol] 325 mg Tablet 650 mg PO Q6H PRN (Reason: Pain) magnesium hydroxide [Milk of Magnesia] 400 mg/5 mL Suspension 30 ml PO Q48H PRN (Reason: Constipation) bisacodyl [Dulcolax (bisacodyl)] 10 mg Suppository 10 mg TN Q72H PRN (Reason: Constipation) Fleet Enema 19-7 gram/118 mL Enema 118 ml TN Q72H PRN (Reason: Constipation) levetiracetam [Keppra] 1,000 mg tablet 1,000 mg PO BID 90 Days Qty: 180 1RF mirtazapine 15 mg tablet 15 mg PO HS latanoprost [Xalatan] 0.005 % drops 1 drp ophthalmic (eye) QPM brimonidine 0.1 % drops 1 drp ophthalmic (eye) TID Rx Instructions: administer approximately 8 hours apart zonisamide 100 mg capsule 600 mg PO QDAY Xcopri 200 mg tablet 200 mg PO QDAY timolol maleate 0.5 % drops, once daily 1 drp ophthalmic (eye) QDAY Referrals: Nico Dillon MD [Primary Care Provider] Patient/Caregiver Discharge Instructions Print Language: Estonian Quality Discharge Quality Measures VTE prophylaxis
[2024-12-29 12:00] VITALS: BP 110/68; PULSE 94; RESP 17; TEMP 36.8; O2SAT 92
[2024-12-29 16:00] VITALS: BP 103/61; PULSE 80; RESP 18; TEMP 36.6; O2SAT 92
--- NOTE | 2024-12-29 17:20 | PC.NURSE ---
Report given to tri rental counter clerk . all questions answered. pt will be transferred to [facility] from [facility]. iv in place for transfer.
== END 2024-12-29 17:42 | disposition other institution (70) | DRG 445 ==
LOC: SERX 14:24 → SERHOLD 16:35 → S3NX 20:05
PROVIDERS: Admitting Provider Internal Medicine; Emergency Provider Family Medicine; PCP Hospitalist; Visit Provider Internal Medicine
DX: K80.00 Calculus of gallbladder with acute cholecystitis without obstruction (principal); N13.6 Pyonephrosis; G40.909 Epilepsy, unspecified, not intractable, without status epilepticus; K42.9 Umbilical hernia without obstruction or gangrene; N20.0 Calculus of kidney; K82.8 Other specified diseases of gallbladder; Z86.73 Personal history of transient ischemic attack (TIA), and cerebral infarction without residual deficits; Z87.442 Personal history of urinary calculi
CPT/HCPCS: 36415; 74176; 74181; 76705; 80053; 80061; 80076; 81001; 82150; 83605; 83735; 84100; 85025; 85610; 85730; 87040; 87077; 87081; 87086; 87186; 99285; J0744; J1644; J1953; J2270; J2405; J2470; J2543; J3475; J3480; J3490; J7030; J7120; A9270; J1836

== ENCOUNTER 2025-01-02 21:39 | Emergency (ER) | payer MEDICARE, MEDICAID, SELFPAY ==
[2025-01-02 21:44] VITALS: BP 143/90; PULSE 91; RESP 19; TEMP 37; O2SAT 94
[2025-01-02 22:04] VITALS: BMI 23.5
--- NOTE | 2025-01-02 22:06 | EDNOTE_ITS ---
Altered Mental Status RME/HPI General Chief Complaint: Altered Mental Status Stated Complaint: AMS Time Seen by Provider: 01/02/25 21:53 Arrival date/time: 01/02/25 21:39 RME / HPI RME / HPI narrative: DR. 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 Patient was seen in ED on 12/29/2024 and underwent MRCP which failed to demonstrate common bile duct or hepatic stone, and so patient was transferred to [facility] for emergent ERCP. Patient given 1 round of antibiotics before family AMA'ed patient and he was transferred back to [facility] approximately 2 hours ago. Patient c/o BL hip pain an clicking, as well as scrotal edema. Per EMS, patient was non-tachycardic and BS was 106 mg/dL on scene. Per [id number], patient was discharged from [facility] following antibiotic treatment and stone removal. She was advised to give Tylenol and Motrin prn for pain. On her way back from picking up the patient from [facility], [id number] saw patient having a seizure from the rear-view mirror, pulled over, and called EMS at approximately 6-7 PM. EMS advised [id number] that patient could return to SNF and arrived at approximately 8 PM tonight. She states that patient has not been acting himself since the seizure. Related Data Home Medications ?Medication ?Instructions ?Recorded ?Confirmed acetaminophen 325 mg tablet 650 mg PO Q6H PRN Pain 12/28/24 (Tylenol) bisacodyl 10 mg rectal suppository 10 mg VA Q72H PRN C onstipation 03/31/20 12/28/24 (Dulcolax (bisacodyl)) magnesium hydroxide 400 mg/5 mL 30 ml PO Q48H PRN Cons tipation 03/31/20 12/28/24 oral suspension (Milk of Magnesia) sodium phosphates 19 gram-7 118 ml VA Q72H PRN Constip ation 03/31/20 12/28/24 gram/118 mL enema (Fleet Enema) brimonidine 0.1 % eye drops 1 drp ophthalmic (eye) TID 12/28/24 12/28/24 cenobamate 200 mg tablet (Xcopri) 200 mg PO QDAY 12/2812/28/24 latanoprost 0.005 % eye drops 1 drp ophthalmic (eye) Q PM 12/28/24 12/28/24 (Xalatan) mirtazapine 15 mg tablet 15 mg PO HS 12/28/24 5 timolol maleate 0.5 % once daily 1 drp ophthalmic (eye ) QDAY 12/28/24 12/28/24 eye drops zonisamide 100 mg capsule 600 mg PO QDAY 12/28/2412/17 Previous Rx's ?Medication ?Instructions ?Recorded levetiracetam 1,000 mg tablet 1,000 mg PO BID 90 days #180 tabs 09/24/22 (Keppra) Allergies Allergy/AdvReac Type Severity Reaction Status Date / Time No Known Allergies Allergy Verified 06/20/18 16:08 Review of Systems Review of Systems Systems Reviewed: All systems reviewed, normal except as documented Past Medical History Past Medical History NEUROLOGIC: Positive Neurological Disorders, Cerebrovascular Accident and Seizures GASTROINTESTINAL: Positive Gall Bladder Disease Social History HOUSING: Custodial LIVES WITH: Staff-Care Providers ED Exam Narrative Physical exam: Generally patient is alert chronically ill-appearing and confused head is normocephalic atraumatic, eyes show pupils to be midrange and equal bilaterally with icteric sclera, skin is jaundice, heart sinus tach at a rate of 104, lungs clear to auscultation neck bilaterally abdomen soft bowel sounds present nondistended right upper quadrant abdominal tenderness without rebound. Questionable Cintron sign. Neurologic exam patient is confused but does follow simple commands with a [place] Coma Scale of 14 without focal motor deficits Course Quality Measures none Orders Category Date Time Status EKG (ED ONLY) *Do not use* NOW Care 01/02/25 22:[address] head/brain wo con Stat Exams 01/02/25 22:08 Taken EKG (ED Only) Stat Exams 01/02/25 22:08 Draft US gall bladder Stat Exams 01/02/25 22:08 Completed Alcohol, Blood Medical Stat Lab 01/02/25 22:40 Completed Ammonia Stat Lab 01/02/25 22:40 Completed Amylase Stat Lab 01/02/25 22:40 Completed Blood Culture (Lab) Stat Lab 01/02/25 23:28 Ordered CBC Stat Lab 01/02/25 22:40 Completed CMP [Comprehensive Metabolic Panel] Stat Lab 01/02/25 22:40 Completed Drug Screen,Urine Stat Lab 01/02/25 22:09 Ordered Lactic Acid [Lactate (Lactic Acid)] Stat Lab 01/02/25 23:21 Ordered TSH [Thyroid Stimulating Hormone] Stat Lab 01/02/25 22:40 Completed UA [Urinalysis] Stat Lab 01/02/25 22:09 Ordered Sodium Chloride 0.9% 1000 ml [Ns] 1,000 ml Med 01/02/25 23:21 Active IV 999 mls/hr cefTRIAXone/D5w 1gm IV premix [Rocephin/D5w 1gm IV Med 01/02/25 23:18 Active premix] 1 gm in 50 ml IV X1 metroNIDAZOLE/NS 500 MG IVPB [Flagyl 500 mg IV] Med 01/02/25 23:19 Active 500 mg in 100 ml IV X1 Vital Signs Vital signs: Vital Signs Temperature 98.6 F 01/02/25 21:44 Pulse Rate 91 01/02/25 21:44 Respiratory Rate 19 01/02/25 21:44 Blood Pressure 143/90 H 01/02/25 21:44 Pulse Oximetry (%) 94 L 01/02/25 21:44 Oxygen Delivery Method Room Air 01/02/25 21:44 Altered Mental Status MDM Narrative MDM Narrative:: Scribe Attestation: I, Jessica Bruno, am scribing for and in the presence of Dr. Melvin. Provider Notation: Although this document has been carefully reviewed, there may still be some phonetic and other typographical errors. These errors are purely grammatical due to imperfections in the software program and should not be construed in any way to compromise the substance of the patient's medical care d uring this visit. I interpreted all labs. LFTs are still elevated. Gallbladder ultrasound showed edematous gallbladder wall with a normal common bile duct with multiple gallstones. The official reading by the radiologist was calculous cholecystitis. Patient received Rocephin 1 g IV and Flagyl 500 mg IV. I am worried that the goal bladder is infected. I believe the patient's lethargy and decreased mental status to be due to the fact that the patient had a seizure at approximately 7 PM tonight witnessed by his this was driving back from [facility]. I believe this to be a postictal state. Patient does have a known seizure disorder. I have attempted to get the discharge summary as well as the ERCP report from [facility] without success at this time. I believe that the patient needs to return to [facility] for further IV antibiotic therapy for his calculous cholecystitis. A call is currently out to [facility] at this time. CAT scan of the brain was negative. Patient data External records reviewed:: [facility] previous records (Reviewed prior ED records from 12/28/24. Patient was seen for Cholecystitis.) and EMS form Clinical information provided by:: EMS Social determinants that could affect healthcare access:: housing (SNF) Patient has the following chronic illnesses:: None How is presenting disease/condition affected by chronic disease/condition?: exacerbated by Evaluation data The following diagnostics were reviewed and interpreted by me:: lab results, radiology exam(s) and EKG tracing(s) Lab and/or radiology exams considered but not ordered:: None Interpretation Summary: RADIOLOGY Gall Bladder US: Findings: Multiple gallstones Gallbladder wall 0.8 cm with edema Common bile duct 0.3 cm Pancreas obscured by bowel gas Liver 15.7 cm fatty infiltration lobular contour no focal liver lesions Normal hepatopedal portal venous flow Patent IVC Impression: Acute calculus cholecystitis Normal common bile duct Head/Brain CT: Pending official radiology report. Medications / Prescriptions Medications or Prescriptions considered but not ordered:: None Medication administrations:: Medication Administration History Ceftriaxone Sodium/Dextrose (Rocephin/D5w 1gm Iv Premix) 1 gm in 50 mls @ 100 mls/hr IV X1 ONE Stop: 01/02/25 23:47 Last Admin: 01/02/25 23:30 Dose: 100 mls/hr Documented By: DT Metronidazole (Flagyl 500 Mg Iv) 500 mg in 100 mls @ 100 mls/hr IV X1 ONE Stop: 01/03/25 00:18 Sodium Chloride (Ns) 1,000 mls @ 999 mls/hr IV .Q1H1M ONE Stop: 01/03/25 00:21 Last Admin: 01/02/25 23:29 Dose: 999 mls/hr Documented By: DT See above if any Consultations Consultation(s) initiated? (list below): Yes Diagnosis Differential diagnosis altered mental status: altered mental status, delirium, dementia, hypoglycemia, hyponatremia, subarachnoid hemorrhage and sepsis Most likely diagnosis given after review of the tests above:: None Admission Indicated Admission indicated?: not indicated Admission Request Was there a request for admission?: No Disposition Plan Disposition Plan: Transfer Discharge Plan Plan Patient Disposition: [facility] Service Needed for Transfer: Gastroenterology Prescriptions/Referrals Prescriptions/Med Rec: No Action acetaminophen [Tylenol] 325 mg Tablet 650 mg PO Q6H PRN (Reason: Pain) magnesium hydroxide [Milk of Magnesia] 400 mg/5 mL Suspension 30 ml PO Q48H PRN (Reason: Constipation) bisacodyl [Dulcolax (bisacodyl)] 10 mg Suppository 10 mg VA Q72H PRN (Reason: Constipation) Fleet Enema 19-7 gram/118 mL Enema 118 ml VA Q72H PRN (Reason: Constipation) levetiracetam [Keppra] 1,000 mg tablet 1,000 mg PO BID 90 Days Qty: 180 1RF mirtazapine 15 mg tablet 15 mg PO HS latanoprost [Xalatan] 0.005 % drops 1 drp ophthalmic (eye) QPM brimonidine 0.1 % drops 1 drp ophthalmic (eye) TID Rx Instructions: administer approximately 8 hours apart zonisamide 100 mg capsule 600 mg PO QDAY Xcopri 200 mg tablet 200 mg PO QDAY timolol maleate 0.5 % drops, once daily 1 drp ophthalmic (eye) QDAY Referrals: Nico Dillon MD [Primary Care Provider] - In 1 week Problem List Clinical Impression: Calculous cholecystitis, Seizure disorder Patient/Caregiver Discharge Instructions Print Language: Frisian Stand Alone Forms: Silvia Award Info., Patient Portal Info Letter
[2025-01-02 22:08] VITALS: BP 139/83; PULSE 104; RESP 24; TEMP 37.2; O2SAT 98
--- NOTE | 2025-01-02 22:08 | EKG_ITS ---
[facility] Test Date: 2025-01-02 Pat Name: JÚNIOR SALGADO Department: Room: - Gender: Male Open Cut Examiner: : 1950 Requested By: Nishant Oden Order Number: [id number] Reading MD: Nishant Oden Measurements Intervals [place] Rate: 81 P: 30 DE: 149 QRS: -29 QRSD: 77 T: -12 QT: 392 QTc: 455 Interpretive Statements SINUS RHYTHM INFERIOR MYOCARDIAL INFARCTION , OF INDETERMINATE AGE [40+ ms Q WAVE AND/OR ST/T ABNORMALITY IN II/aVF] Compared to ECG 09/23/2022 16:03:23 Myocardial infarct finding now present T-wave abnormality no longer present /store/S0/[id number]/ecg/[id number].pdf
--- NOTE | 2025-01-02 22:08 | XR_ITS ---
Examination: CT brain head without contrast. 2-D sagittal coronal reconstructions Date and time of exam:January 02, 2025 10:50 PM, comparison October 04, 2022 Indications: Seizure 1800 hrs. Today followed by altered mental status CTDI: vol (mGy):49.1 DLP: (mGycm):963 Technique: Multiple CT axial sections of the brain have been obtained, 5 mm slice thickness. Contrast has not been administered. 2-D sagittal, coronal reconstructions have been obtained Low dose protocols were performed. One or more of the following dose reduction techniques were used; automated exposure control, adjustment of the mA and/or KV according to patient size, use of iterative reconstruction technique. Findings: No significant ventricular enlargement. Old infarct left cerebellar hemisphere Intra-axial or extra-axial hemorrhage density is not seen. No mass effect or midline shift Basal cisterns are not remarkable. Fourth ventricle is midline. Cranial vault intact. Impression: Negative for acute hemorrhage, mass effect or midline shift Advise clinical correlation follow-up accordingly
--- NOTE | 2025-01-02 22:08 | XR_ITS ---
Examination: Abdomen sonogram, Limited Date and time of exam: April 03, 2025 1020 hrs. Indications: Right upper abdominal pain and jaundice today Technique: Real-time short scale transabdominal sonographic images of the upper abdomen obtained. Findings: Multiple gallstones Gallbladder wall 0.8 cm with edema Common bile duct 0.3 cm Pancreas obscured by bowel gas Liver 15.7 cm fatty infiltration lobular contour no focal liver lesions Normal hepatopedal portal venous flow Patent IVC Impression: Acute calculus cholecystitis Normal common bile duct
[2025-01-02 22:52] LABS: Basophils # (Auto) 0.0 Thou/mm3 (0.0-0.2); Basophils % (Auto) 0 % (0-2.5); Eosinophils # (Auto) 0.2 Thou/mm3 (0.0-0.5); Eosinophils % (Auto) 2 % (0-10); Hematocrit 40.0 % (41.0-53.0); Hemoglobin 13.3 g/dL (13.5-16.0); Immature Granulocytes Auto 0.08 Thou/mm3 (0.00-0.00); Lymphocytes # (Auto) 1.4 Thou/mm3 (1.0-4.8); Lymphocytes % (Auto) 15 % (10-50); Mean Corpuscular HGB Conc 33.3 g/dl (31.0-37.0); Mean Corpuscular Hemoglobin 30.6 pg (25.0-35.0); Mean Corpuscular Volume 92 fL (80-100); Monocytes # (Auto) 0.8 Thou/mm3 (0.0-0.8); Monocytes % (Auto) 8 % (0-12); Neutrophils # (Auto) 7.3 Thou/mm3 (1.8-7.7); Neutrophils % (Auto) 74 % (37-80); Nucleated Red Blood Cell # 0.00 Thou/mm3 (0.00-0.00); Nucleated Red Blood Cell % 0 /100 WBC (0); Platelet Count 184 Thou/mm3 (140-440); RDW Standard Deviation 48.8 fL (35.1-43.9); Red Blood Count 4.35 Miln/mm3 (4.50-5.90); White Blood Count 9.9 Thou/mm3 (3.8-10.6)
[2025-01-02 23:07] LABS: Ammonia 15 uMol/L (11-32)
[2025-01-02 23:14] LABS: Alanine Aminotransferase 92 U/L (10-49); Albumin, Serum 3.3 gm/dL (3.4-4.8); Albumin/Globulin Ratio 1.3 (1.2-2.2); Alkaline Phosphatase 199 U/L (46-116); Amylase 92 U/L (30-118); Anion Gap 12 (7-16); Aspartate Amino Transferase 69 U/L (0-34); BUN/Creatinine Ratio 9 Ratio (12-20); Bilirubin,Total 5.0 mg/dL (0.3-1.2); Blood Urea Nitrogen 6 mg/dL (9-23); Calcium 8.4 mg/dL (8.3-10.6); Calcium (Corrected) 9.0 mg/dL (8.5-10.1); Carbon Dioxide 19.7 mMol/L (20.0-31.0); Chloride 111 mMol/L (98-107); Creatinine (Component) 0.7 mg/dL (0.6-1.3); Estimated Creatinine Clearance 89.2 mL/min (>60); Globulin 2.6 gm/dL (2.3-3.5); Glucose 97 mg/dL (74-106); Osmolality,Calculated 282 (275-295); Potassium 3.8 mMol/L (3.4-5.1); Sodium 143 mMol/L (136-145); Thyroid Stimulating Hormone 3.49 uIU/mL (0.55-4.78); Total Protein 5.9 gm/dL (5.7-8.2); eGFR > 60 See Note
[2025-01-02 23:17] LABS: Alcohol, Blood Medical < 3.0 mg/dL (0-10.0)
[2025-01-02] MEDS: SODIUM CHLORIDE 0.9% 1000 ML 1,000 ML 999 ML IV (23:29)
[2025-01-02] MEDS: cefTRIAXone/D5w 1gm IV premix 1 GM/50 ML BAG IV (23:30)
[2025-01-02 23:46] LABS: Lactate (Lactic Acid) 0.9 mMol/L (0.4-2.0)
[2025-01-03] MEDS: metroNIDAZOLE/NS 500 MG IVPB 500 MG/100 ML BAG 100 MG IV (00:41)
[2025-01-03 00:43] VITALS: BP 141/86; PULSE 82; RESP 20; TEMP 36.8; O2SAT 98
--- NOTE | 2025-01-03 00:50 | PD.EDADDENDU ---
Emergency Room Addendum Addendum Narrative: I received the discharge summary from [facility]. The ERCP was done on January 10 that showed biliary sludge without extrahepatic or intrahepatic biliary duct dilatation. No obvious choledocholithiasis was seen. They deemed the current medical bed despite the patient having gallbladder wall thickening and some mild Mikey cholecystic fluid that there was no need for cholecystectomy at the time. Due to the patient's mild degree of pain and lack of leukocytosis they do not believe antibiotics are needed. I recontacted with [facility] and spoke to the transfer center. This is because the patient had gallbladder wall edema on our gallbladder ultrasound tonight. LFTs however were improved then when compared to 4 days ago and there is still no leukocytosis no fever and the patient has very minimal right upper quadrant abdominal pain or tenderness. CAT scan of the brain was negative. Patient is back to baseline mental status. Patient is to continue his current plan that was set out for him at [facility] which is to follow-up with them in 2 weeks with repeat LFTs. Continue all current medications including the Keppra for seizure. Patient is stable for discharge back to his [facility] facility at [facility]. Of note, the patient had a laceration to the undersurface of the right fifth toe with good wound edge approximation with normal lie of that toe. That 2 cm laceration was closed using skin adhesive with good wound edge approximation after being cleansed with normal saline.
[2025-01-03 01:44] VITALS: BP 148/72; PULSE 78; RESP 18; TEMP 36.8; O2SAT 96
--- NOTE | 2025-01-03 01:56 | PC.NURSE ---
Pt arrived from [facility] without report from facility. All documents sent with [facility] back to [facility]. Staff is hostile per usual when trying to contact. freelance operator Bob aware
== END 2025-01-03 01:53 | disposition skilled nursing facility (03) ==
PROVIDERS: Emergency Provider Emergency Medicine; PCP Hospitalist
DX: K80.00 Calculus of gallbladder with acute cholecystitis without obstruction (principal); G40.909 Epilepsy, unspecified, not intractable, without status epilepticus
CPT/HCPCS: 36415; 70450; 76705; 80053; 80307; 80320; 81001; 82140; 82150; 83605; 84443; 85025; 87040; 93005; 99284; J0696; J3490; J7030; G0480; J1836

== ENCOUNTER 2025-03-14 12:04 | Emergency (ER) | payer MEDICARE, MEDICAID, SELFPAY ==
[2025-03-14 12:13] VITALS: BP 113/80; PULSE 112; PULSE 99; RESP 16; RESP 24; TEMP 37.1; O2SAT 95; BMI 25.0
--- NOTE | 2025-03-14 12:39 | EDNOTE_ITS ---
ED Abdominal Pain RME/HPI General Chief Complaint: Abdominal Pain Stated complaint: ABD PAIN Time seen by provider: 03/14/25 12:32 Arrival date/time: 03/14/25 12:04 Limitations: no limitations RME / HPI RME / HPI narrative: 74 year old male presents to the ED DENIZ from [facility] for evaluation of abdominal pain today. Described as an aching fullness sensation located to mid abdomen. Reports he had surgery in his abdomen yesterday though unable to provide any additional details. I spoke with custodial staff who reported the patient underwent cholecystecto,y 2 days ago in [place], [place] by Dr. Smith. State this morning patient was complaining of abdominal pain, mostly to the left lower quadrant and noted to be hypotensive 88/66. State the daughter has the packet from the other hospital and should be coming to be ED. Daughter at bedside reported the patient underwent cholecystectomy 2 days ago at [facility] by Dr. Smith. States patient had been doing well up until today when he began complaining of abdominal pain. Also states patient underwent lithotripsy 8 days ago. Related Data Home Medications ?Medication ?Instructions ?Recorded ?Confirmed acetaminophen 325 mg tablet 650 mg PO Q6H PRN Pain 12/28/24 (Tylenol) bisacodyl 10 mg rectal suppository [address] Q72H PRN C onstipation 03/31/20 12/28/24 (Dulcolax (bisacodyl)) magnesium hydroxide 400 mg/5 mL 30 ml PO Q48H PRN Cons tipation 03/31/20 12/28/24 oral suspension (Milk of Magnesia) sodium phosphates 19 gram-[address] Q72H PRN Constip ation 03/31/20 12/28/24 gram/118 mL enema (Fleet Enema) brimonidine 0.1 % eye drops 1 drp ophthalmic (eye) TID 12/28/24 12/28/24 cenobamate 200 mg tablet (Xcopri) 200 mg PO QDAY 12/2812/28/24 latanoprost 0.005 % eye drops 1 drp ophthalmic (eye) Q PM 12/28/24 12/28/24 (Xalatan) mirtazapine 15 mg tablet 15 mg PO HS 12/28/24 5 timolol maleate 0.5 % once daily 1 drp ophthalmic (eye ) QDAY 12/28/24 12/28/24 eye drops zonisamide 100 mg capsule 600 mg PO QDAY 12/28/2412/17 Previous Rx's ?Medication ?Instructions ?Recorded levetiracetam 1,000 mg tablet 1,000 mg PO BID 90 days #180 tabs 09/24/22 (Keppra) Allergies Allergy/AdvReac Type Severity Reaction Status Date / Time No Known Allergies Allergy Verified 06/20/18 16:08 Review of Systems Review of Systems Systems Reviewed: All systems reviewed, normal except as documented Past Medical History Past Medical History NEUROLOGIC: Positive Neurological Disorders, Cerebrovascular Accident, Seizures and Epilepsy GASTROINTESTINAL: Positive Gall Bladder Disease Surgical History SURGICAL: Positive Abdominal Surgery Social History SMOKING STATUS: Never smoker SUBSTANCE USE: does not use ED Exam General Limitations: Present no limitations General appearance: Present alert (oriented ) and in no apparent distress Head Head exam: Present atraumatic, normocephalic and normal inspection Eye Eye exam: Present normal appearance, PERRL and EOMI ENT ENT exam: Present normal exam, normal oropharynx and mucous membranes moist Neck Neck exam: Present normal inspection, full ROM and trachea midline Chest Chest inspection: Present normal inspection and symmetric chest wall rise Respiratory Respiratory exam: Present normal lung sounds bilaterally Cardiovascular Cardiovascular exam: Present regular rate, normal rhythm and normal heart sounds Abdominal Exam Abdominal exam: Present soft, normal bowel sounds and other (multiple linear healing surgical scars in the mid abdomen with ecchymosis surrounding each healing wound) Extremities Exam Extremities exam: Present normal inspection and full ROM Back Exam Back exam: Present normal inspection and full ROM Neurological Exam Neurological exam: Present alert and CN II-XII intact Psychiatric Psychiatric exam: Present normal affect and normal mood Skin Skin exam: Present warm, dry, intact and normal color Course Quality Measures none Orders Category Date Time Status CT Screening NOW Care 03/14/25 12:53 Active [employer] Reading Teacher NOW Care 03/14/25 12:49 Active Continuous Pulse Oximetry NOW Care 03/14/25 12:49 Completed EKG (ED ONLY) *Do not use* NOW Care 03/14/25 12:49 Completed Insert IV NOW Care 03/14/25 12:49 Active Referral - Labor Relations Or Personnel Negotiator Stat Cons 03/14/25 16:[address] abdomen pelvis w con Stat Exams 03/14/25 12:52 Completed EKG (ED Only) Stat Exams 03/14/25 12:49 Draft XR chest 1V portable Stat Exams 03/14/25 12:49 Completed Blood Culture (Lab) Stat Lab 03/14/25 16:55 Received CBC Stat Lab 03/14/25 13:35 Completed Comprehensive Metabolic Panel Stat Lab 03/14/25 13:35 Completed Lactic Acid [Lactate (Lactic Acid)] Stat Lab 03/14/25 16:55 Completed Lipase Stat Lab 03/14/25 13:35 Completed Partial Thromboplastin Time Stat Lab 03/14/25 13:35 Completed Prothrombin Time with INR Stat Lab 03/14/25 13:35 Completed Troponin I Stat Lab 03/14/25 13:35 Completed Azithromycin Inj [Zithromax Inj] 500 mg Med 03/14/25 16:57 Pending Sodium Chloride 0.9% 250 ml [Ns] 250 ml IV QDAY Azithromycin Inj [Zithromax Inj] 500 mg Med 03/14/25 17:00 Active Sodium Chloride 0.9% 250 ml [Ns] 250 ml IV X1 Morphine* Inj Med 03/14/25 12:50 Discontinued 4 mg IVP X1 ONE Morphine* Inj Med 03/14/25 16:51 Discontinued 4 mg IVP X1 ONE Ondansetron Inj [Zofran Inj] Med 03/14/25 12:50 Discontinued 4 mg IVP X1 ONE Ondansetron Inj [Zofran Inj] Med 03/14/25 16:51 Discontinued 4 mg IVP X1 ONE Piper/Tazo 3.375 gm Premix [Zosyn] Med 03/14/25 16:46 Discontinued 3.375 gm in 50 ml IV X1 Sodium Chloride 0.9% 1000 ml [Ns] 1,000 ml Med 03/14/25 12:49 Active IV 100 mls/hr Vital Signs Vital signs: Vital Signs Temperature 98.8 F 03/14/25 12:13 Pulse Rate 99 03/14/25 12:13 Respiratory Rate 16 03/14/25 12:13 Blood Pressure 113/80 03/14/25 12:13 Pulse Oximetry (%) 95 03/14/25 12:13 Oxygen Delivery Method Room Air 03/14/25 12:13 Pulse ox is 95% on room air which is adequate. Abdominal Pain MDM MDM Narrative MDM Narrative:: I, Talia Ag, am scribing for and in the presence of Dr. Sanchez. 1245p: I spoke with staff at the custodial as noted in the HPI. I spoke with our transfer nurse. Discussed patients PMHx, HPI, ED course, exam findings, labs, radiology results and need to transfer back to [facility] with surgeon who performed cholecystectomy 2 days ago. 1800: Care signed out to Dr. Das pending transfer. Patient data External records reviewed:: [facility] previous records and EMS form Clinical information provided by:: EMS and family Social determinants that could affect healthcare access:: housing ([place] resident ) Patient has the following chronic illnesses:: CVA, seizures, s/p cholecystectomy on 03/12/2025 How is presenting disease/condition affected by chronic disease/condition?: exacerbated by Evaluation data The following diagnostics were reviewed and interpreted by me:: lab results, radiology exam(s) and EKG tracing(s) (EKG @ 13:20h, interpreted by me, normal sinus rhythm, rate 94, no STEMI. ) Lab and/or radiology exams considered but not ordered:: None Interpretation Summary: Ordering Physician: Vern Sanchez MD Date of Service: 03/14/25 Procedure(s): XR chest 1V portable Accession Number(s): [id number] cc: Vern Sanchez MD; Yosvany Kirk MD; NO PRIMARY/FAMILY,PHYSICIAN~ EXAMINATION: AP chest single view TECHNIQUE: AP portable semiupright chest single view Date and time: March 14, 2025, 1403 hours, comparison April 25, 2021 INDICATIONS: Coughing 2 months. FINDINGS: Atelectasis versus early pneumonia at the lung bases No significant cardiac enlargement Mild elevation left hemidiaphragm Prominent osteopenia IMPRESSION: Atelectasis versus early pneumonia at the lung bases Dictated By: Yosvany Kirk MD Signed By: <Electronically signed by Yosvany Kirk MD in OV> 03/14/25 1506 Ordering Physician: Vern Sanchez MD Date of Service: 03/14/25 Procedure(s): CT abdomen pelvis w con Accession Number(s): [id number] cc: Vern Sanchez MD; Yosvany Kirk MD; NO PRIMARY/FAMILY,PHYSICIAN~ Examination: CT abdomen with intravenous contrast CT pelvis with intravenous contrast 2-D coronal reconstructions 2-D sagittal reconstructions Date and time of exam: March 14, 2025, 1411 hours INDICATIONS: Cholecystectomy 2 days ago with abdominal pain. CTDI: vol (mGy) 5.52 DLP: (mGycm) 331 Technique: Multiple axial sections of the abdomen and pelvis have been obtained. 64 slice high-resolution scanner used. 3 mm axial sections have been obtained, post intravenous injection 30 cc Isovue-300 2-D sagittal, coronal reconstructions obtained. Low dose protocols were performed. One or more of the following dose reduction techniques were used; automated exposure control, adjustment of the mA and/or KV according to patient size, use of iterative reconstruction technique. Findings: Pneumonia left base Pneumoperitoneum Small fluid collection in the gallbladder fossa which may be postoperative No pancreatic or adrenal mass Bilateral renal calculi Atrophic left kidney with severe left renal cortical thinning Bilateral renal calculi Ureteral stents in satisfactory position, moderate right hydronephrosis Extensive fluid distended small bowel loops Fluid distended colon Normal seminal vesicles No prostatomegaly Urinary bladder wall thickening up to 12 mm IMPRESSION: Small fluid collection in the gallbladder fossa which may be postoperative A developing gallbladder fossa abscess is a clinical consideration repeat the study in 1 to 2 days Bilateral renal calculi Atrophic left kidney with severe left renal cortical thinning Ureteral stents in satisfactory position Moderate right hydronephrosis Extensive fluid distended small bowel loops, consider early small bowel obstruction, consider Gastrografin small bowel series follow-up Cystitis pattern Dictated By: Yosvany Kirk MD Signed By: <Electronically signed by Yosvany Kirk MD in OV> 03/14/25 1095 Medications / Prescriptions Medications or Prescriptions considered but not ordered:: None Medication administrations:: Medication Administration History Sodium Chloride (Ns) 1,000 mls @ 100 mls/hr IV .Q10H ONE Stop: 03/14/25 22:48 Last Admin: 03/14/25 15:28 Dose: 100 mls/hr Documented By: DO Azithromycin 500 mg/ Sodium (Chloride) 250 mls @ 250 mls/hr IV QDAY SANTOS Stop: 03/21/25 16:56 Azithromycin 500 mg/ Sodium (Chloride) 250 mls @ 250 mls/hr IV X1 ONE Stop: 03/14/25 17:59 Discontinued Medications Piperacillin/Tazobactam/Dextrose (Zosyn) 3.375 gm in 50 mls @ 100 mls/hr IV X1 ONE; Protocol Stop: 03/14/25 17:15 Morphine Sulfate (Morphine Sulf Inj 4 Mg/Ml Vial) 4 mg IVP X1 ONE Stop: 03/14/25 12:51 Last Admin: 03/14/25 15:27 Dose: Not Given Documented By: DO Non-Admin Reason: NO PAIN Morphine Sulfate (Morphine Sulf Inj 4 Mg/Ml Vial) 4 mg IVP X1 ONE Stop: 03/14/25 16:52 Ondansetron HCl (Ondansetron Inj 2 Mg/Ml Inj 2 Ml) 4 mg IVP X1 ONE; Protocol Stop: 03/14/25 12:51 Last Admin: 03/14/25 15:27 Dose: Not Given Documented By: DO Non-Admin Reason: Patient Refused Ondansetron HCl (Ondansetron Inj 2 Mg/Ml Inj 2 Ml) 4 mg IVP X1 ONE; Protocol Stop: 03/14/25 16:52 See above Consultations Consultation(s) initiated? (list below): Yes Consultation #1 (Physician, Specialty, Details): See MDM Diagnosis Differential diagnosis abdominal pain: abdominal pain, calculus of kidney, constipation, gastroenteritis and small bowel obstruction Most likely diagnosis given after review of the tests above:: Post surgical abscess Pneumonia left base Leukocytosis s/p lap marva Admission Indicated Admission indicated?: not indicated Explain why admission is indicated or not indicated:: Signed out pending final disposition Admission Request Was there a request for admission?: No Disposition Plan Disposition Plan: other (specify) (Signed out to Dr. Das ) Discharge Plan Prescriptions/Referrals Prescriptions/Med Rec: No Action acetaminophen [Tylenol] 325 mg Tablet 650 mg PO Q6H PRN (Reason: Pain) magnesium hydroxide [Milk of Magnesia] 400 mg/5 mL Suspension 30 ml PO Q48H PRN (Reason: Constipation) bisacodyl [Dulcolax (bisacodyl)] 10 mg Suppository [address] Q72H PRN (Reason: Constipation) Fleet Enema 19-7 gram/118 mL Enema [address] Q72H PRN (Reason: Constipation) levetiracetam [Keppra] 1,000 mg tablet 1,000 mg PO BID 90 Days Qty: 180 1RF mirtazapine 15 mg tablet 15 mg PO HS latanoprost [Xalatan] 0.005 % drops 1 drp ophthalmic (eye) QPM brimonidine 0.1 % drops 1 drp ophthalmic (eye) TID Rx Instructions: administer approximately 8 hours apart zonisamide 100 mg capsule 600 mg PO QDAY Xcopri 200 mg tablet 200 mg PO QDAY timolol maleate 0.5 % drops, once daily 1 drp ophthalmic (eye) QDAY Referrals: No Primary/Family,Physician [Primary Care Provider] - In 1 week Problem List Clinical Impression: Postoperative abscess, Pneumonia, Leukocytosis, History of laparoscopic cholecystectomy Patient/Caregiver Discharge Instructions Print Language: Bhutanese
--- NOTE | 2025-03-14 12:49 | XR_ITS ---
EXAMINATION: AP chest single view TECHNIQUE: AP portable semiupright chest single view Date and time: March 14, 2025, 1403 hours, comparison April 25, 2021 INDICATIONS: Coughing 2 months. FINDINGS: Atelectasis versus early pneumonia at the lung bases No significant cardiac enlargement Mild elevation left hemidiaphragm Prominent osteopenia IMPRESSION: Atelectasis versus early pneumonia at the lung bases
--- NOTE | 2025-03-14 12:49 | EKG_ITS ---
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
--- NOTE | 2025-03-14 12:52 | XR_ITS ---
Examination: CT abdomen with intravenous contrast CT pelvis with intravenous contrast 2-D coronal reconstructions 2-D sagittal reconstructions Date and time of exam: March 14, 2025, 1411 hours INDICATIONS: Cholecystectomy 2 days ago with abdominal pain. CTDI: vol (mGy) 5.52 DLP: (mGycm) 331 Technique: Multiple axial sections of the abdomen and pelvis have been obtained. 64 slice high-resolution scanner used. 3 mm axial sections have been obtained, post intravenous injection 30 cc Isovue-300 2-D sagittal, coronal reconstructions obtained. Low dose protocols were performed. One or more of the following dose reduction techniques were used; automated exposure control, adjustment of the mA and/or KV according to patient size, use of iterative reconstruction technique. Findings: Pneumonia left base Pneumoperitoneum Small fluid collection in the gallbladder fossa which may be postoperative No pancreatic or adrenal mass Bilateral renal calculi Atrophic left kidney with severe left renal cortical thinning Bilateral renal calculi Ureteral stents in satisfactory position, moderate right hydronephrosis Extensive fluid distended small bowel loops Fluid distended colon Normal seminal vesicles No prostatomegaly Urinary bladder wall thickening up to 12 mm IMPRESSION: Small fluid collection in the gallbladder fossa which may be postoperative A developing gallbladder fossa abscess is a clinical consideration repeat the study in 1 to 2 days Bilateral renal calculi Atrophic left kidney with severe left renal cortical thinning Ureteral stents in satisfactory position Moderate right hydronephrosis Extensive fluid distended small bowel loops, consider early small bowel obstruction, consider Gastrografin small bowel series follow-up Cystitis pattern
[2025-03-14 13:38] VITALS: PULSE 104
[2025-03-14 13:46] LABS: Basophils # (Auto) 0.1 Thou/mm3 (0.0-0.2); Basophils % (Auto) 0 % (0-2.5); Eosinophils # (Auto) 0.0 Thou/mm3 (0.0-0.5); Eosinophils % (Auto) 0 % (0-10); Hematocrit 50.3 % (41.0-53.0); Hemoglobin 17.2 g/dL (13.5-16.0); Immature Granulocytes Auto 0.14 Thou/mm3 (0.00-0.00); Lymphocytes # (Auto) 1.8 Thou/mm3 (1.0-4.8); Lymphocytes % (Auto) 12 % (10-50); Mean Corpuscular HGB Conc 34.2 g/dl (31.0-37.0); Mean Corpuscular Hemoglobin 30.3 pg (25.0-35.0); Mean Corpuscular Volume 89 fL (80-100); Monocytes # (Auto) 0.8 Thou/mm3 (0.0-0.8); Monocytes % (Auto) 6 % (0-12); Neutrophils # (Auto) 12.3 Thou/mm3 (1.8-7.7); Neutrophils % (Auto) 81 % (37-80); Nucleated Red Blood Cell # 0.00 Thou/mm3 (0.00-0.00); Nucleated Red Blood Cell % 0 /100 WBC (0); Platelet Count 182 Thou/mm3 (140-440); RDW Standard Deviation 43.2 fL (35.1-43.9); Red Blood Count 5.67 Miln/mm3 (4.50-5.90); White Blood Count 15.2 Thou/mm3 (3.8-10.6)
[2025-03-14 13:59] LABS: INR 1.2 (0.9-1.3); Partial Thromboplastin Time 32.3 Seconds (22.0-36.0); Prothrombin Time 12.2 Seconds (9.0-12.2)
[2025-03-14 14:03] LABS: Alanine Aminotransferase 52 U/L (10-49); Albumin, Serum 4.3 gm/dL (3.4-4.8); Albumin/Globulin Ratio 1.3 (1.2-2.2); Alkaline Phosphatase 142 U/L (46-116); Anion Gap 11 (7-16); Aspartate Amino Transferase 39 U/L (0-34); BUN/Creatinine Ratio 17 Ratio (12-20); Bilirubin,Total 0.6 mg/dL (0.3-1.2); Blood Urea Nitrogen 24 mg/dL (9-23); Calcium 9.3 mg/dL (8.3-10.6); Calcium (Corrected) 9.3 mg/dL (8.5-10.1); Carbon Dioxide 20.0 mMol/L (20.0-31.0); Chloride 108 mMol/L (98-107); Creatinine (Component) 1.4 mg/dL (0.6-1.3); Estimated Creatinine Clearance 41.5 mL/min (>60); Globulin 3.4 gm/dL (2.3-3.5); Glucose 152 mg/dL (74-106); Lipase 25 U/L (12-53); Osmolality,Calculated 284 (275-295); Potassium 3.5 mMol/L (3.4-5.1); Sodium 139 mMol/L (136-145); Total Protein 7.7 gm/dL (5.7-8.2); Troponin I < 0.020 ng/mL (0.0-0.045); eGFR 53 See Note
[2025-03-14 14:23] VITALS: BP 121/79; PULSE 90; RESP 19; TEMP 36.7; O2SAT 95
[2025-03-14] MEDS: SODIUM CHLORIDE 0.9% 1000 ML 1,000 ML 100 ML IV ×2 (15:28→19:15)
[2025-03-14 17:17] LABS: Lactate (Lactic Acid) 1.5 mMol/L (0.4-2.0)
--- NOTE | 2025-03-14 17:21 | PC.CM ---
Addendum entered by Zee Cabral RN 03/14/25 19:19: 1910 [facility] is still reviewing patient at this time. Patient was seen at [facility] for abscess s/p surgery with Dr. Rivera 2 days ago. As per family patient had a cholecysectomy. I handed off transfer packet with 1 CD to ED charge nurse. Addendum entered by Zee Cabral RN 03/14/25 18:48: 1835 Giuliana with [facility] called me and asked me to fax to another number because my paperwork has not come through. I faxed to [phone]. Addendum entered by Zee Cabral RN 03/14/25 18:42: 1830 I received a call back from Giuliana and I connected her to Dr. Sanchez and she got report from him. Giuliana asked that Dr. Das send some video to them so thier doctor can review the images. She gave me the number [phone]. I provided the number to Dr. Das. I will take completed packet to ED. Addendum entered by Zee Cabral RN 03/14/25 18:14: 1810 I was able to get a hold of Giuliana at the transfer center at [facility]. She states she will call me back. Addendum entered by Zee Cabral RN 03/14/25 17:52: 1735 I called [facility] transfer center again and I left a message asking for a call back. Original Note: 5 I called [facility] and left a message with the transfer center letting then know that I faxed over information and we are looking to transfer patient.I started packet and I made a CD. 1700 I received a referral to [facility] patient for abscess s/p surgery with Dr. Rivera 2 days ago. As per family patient had a cholecysectomy.
--- NOTE | 2025-03-14 18:36 | PD.EDADDENDU ---
Emergency Room Addendum Addendum Narrative: I took over the care from previous shift physician, Dr. Sanchez, at _6PM_ on _03/14/25_. See previous notes for complete H & P and ED course. I reviewed all diagnostic test results. Diagnoses include: Gallbladder fossa abscess after cholecystectomy (Jeancarlos) Pneumonia Ileus I discussed the case with Jeancarlos (Dr. Napoles). About the presentation and exam and diagnostics and treatments here. And need of further care there. Agreed to accept the patient. During my watch, the patient remained stable. J Carlos Das MD
[2025-03-14] MEDS: AZITHROMYCIN INJ 500 MG in SODIUM CHLORIDE 0.9% 250 ML 250 ML 250 MG IV (19:14)
[2025-03-14] MEDS: PIPER/TAZO 3.375 GM PREMIX 3.375 GM/50 ML BAG IV (19:16)
[2025-03-14 19:18] VITALS: BP 109/73; PULSE 90; RESP 19; TEMP 36.7; O2SAT 96
--- NOTE | 2025-03-14 19:51 | PC.NURSE ---
ACCEPTED DR [facility] TO [phone]
--- NOTE | 2025-03-14 20:34 | PC.NURSE ---
This Nurse called patient's son (Vega) to inform about acceptance to transfer patient out, no answer, I left a voicemail requesting a call back.
--- NOTE | 2025-03-14 20:46 | PC.NURSE ---
Late Entry Note: Patient care assumed at 1900, hand off provided by Maday WHYTE. Patient here for abdominal pain, he had a surgery done 3 days ago to remove his gallbladder, surgical incisions noted to the abdomen area with no s/s of infection. Patient is A/O x 3, he speaks Peruvian only, daughter in law is at the bedside. Patient will be transferred out for further care management. He is currently lying in bed comfortably, he denies any pain, nausea, or vomiting at this time. Medications will be administered as ordered.
[2025-03-14 22:48] VITALS: PULSE 78; RESP 19; TEMP 36.8; O2SAT 97
--- NOTE | 2025-03-14 23:09 | PC.NURSE ---
This Nurse has attmepted to communicate with [facility] ER to give Nurse to Nurse report with no success. This Nurse left a voicemail at [phone] requesting a call back.
== END 2025-03-14 22:47 | disposition short-term general hospital (02) ==
PROVIDERS: Family Medicine; Emergency Provider Emergency Medicine
DX: T81.43XA Infection following a procedure, organ and space surgical site, initial encounter (principal); J18.9 Pneumonia, unspecified organism; N26.1 Atrophy of kidney (terminal); N13.2 Hydronephrosis with renal and ureteral calculous obstruction; K63.89 Other specified diseases of intestine; R94.31 Abnormal electrocardiogram [ECG] [EKG]; Z90.49 Acquired absence of other specified parts of digestive tract; Y83.8 Other surgical procedures as the cause of abnormal reaction of the patient, or of later complication, without mention of misadventure at the time of the procedure; Z96.0 Presence of urogenital implants; Z75.1 Person awaiting admission to adequate facility elsewhere
CPT/HCPCS: 36415; 71045; 74177; 80053; 83605; 83690; 84484; 85025; 85610; 85730; 87040; 93005; 99284; A4649; J0456; J2405; J2543; J7030; J7050; Q9967